=== PATIENT | male | born 1955 | race Caucasian/White ===

== ENCOUNTER 2016-09-29 19:54 | Emergency (ER) | payer BC ==
[2016-09-29 20:20] VITALS: BP 136/82; PULSE 64; TEMP 98; BMI 30.1
[2016-09-29] MEDS ORDERED: CEPHALEXIN MONOHYDRATE 500 MG CAPSULE (UD) ONE (22:37)
[2016-09-29] MEDS ORDERED: DIPHTH,PERTUSS(ACELL),TET 0.5 ML DISP.SYRIN IM ONE (22:43)
[2016-09-29] MEDS ORDERED: CEPHALEXIN MONOHYDRATE 500 MG CAPSULE (UD) PO ONE (22:43)
--- NOTE | 2016-09-29 22:57 | PDOC ---
History of Present Illness - General Chief Complaint: Laceration Stated Complaint: LACERATION Time Seen by Provider: 09/29/16 22:16 History Source: Patient Exam Limitations: No Limitations - History of Present Illness Initial Comments: 09/30/16 15:10 My Chief Complaint: left fourth finger laceration History of Present Illness: He is a 61-year-old male with no significant medical history here today after he sustained a laceration to his left fourth finger medial distal aspect cutting it on a bottle in the garbage. Patient reports no glass was broken off into his finger. Patient denies any numbness of finger. Patient has full range of motion of digit. Patient is unsure whether or not he is up-to-date will update today. 09/30/16 15:11 09/30/16 15:13 Occurred: reports: this afternoon Severity: reports: mild Pain Location: reports: upper extremity Method of Injury: Yes: other (to glass from the garbage) Modifying Factors: improves with: None Past History - Past Medical History Allergies/Adverse Reactions: Allergies Allergy/AdvReac Type Severity Reaction Status Date / Time No Known Allergies Allergy Verified 09/29/16 20:20 Home Medications: Ambulatory Orders Cephalexin Monohydrate [Keflex -] 500 mg PO Q8H #29 capsule 09/29/16 Other medical history: Pt denies - Psycho/Social/Smoking Cessation Hx Suicidal Ideation: No Smoking History: Never smoked Hx Alcohol Use: No Drug/Substance Use Hx: No Substance Use Type: None Review of Systems - Review of Systems Able to Perform ROS?: Yes Constitutional: No: Symptoms Reported HEENTM: No: Symptoms Reported Respiratory: No: Symptoms reported Cardiac (ROS): No: Symptoms Reported ABD/GI: No: Symptoms Reported : No: Symptoms Reported Musculoskeletal: No: Symptoms Reported Integumentary: Yes: Other (laceration left fourth finger distal aspect) Neurological: No: Symptoms reported *Physical Exam - Vital Signs Last Vital Signs Temp Pulse Resp BP Pulse Ox 98.0 F 64 20 136/82 98 09/29/16 20:17 09/29/16 20:17 09/29/16 20:17 09/29/16 20:17 09/29/16 20:17 - Physical Exam General Appearance: Yes: Appropriately Dressed Comments:: 09/29/16 22:45 radial pulse 4 + left Extremity: positive: Normal Capillary Refill, Normal Range of Motion (left 4th finger dip jt, pip jt, mcp jt). negative: Normal Inspection (left fourth finger ) Integumentary: positive: Normal Color, Other (laceration linear approx 2.8 cm x 0.25 cm left 4th distal finger ) Neurologic: positive: Alert, Normal Response (left 4th finger ), Respond to painful stimul (left 4th finger ). negative: Sensory Deficit (left fourth finger ) Procedures - Consent Consent obtained: From Patient - Laceration/Wound Repair Left Distal Volar Finger 4th digit Wound Length: 2.6 to 5.0 cm Wound Explored: clean Wound's Depth, Shape: linear Irrigated w/ Saline: Yes Betadine Prep: Yes Anesthesia: 1% Lidocaine Amount of Anesthetic (ccs): 5 (digital block ) Wound Repaired With: Sutures Suture Size/Type: 4:0 Number of Sutures: 3 Sterile Dressing Applied: Yes Progress: 09/29/16 22:59 wound explored left 4th finger no foreign body noted Medical Decision Making - Medical Decision Making 09/30/16 15:12 09/30/16 15:13 09/30/16 15:13 He is a 61-year-old male with no significant medical history here today after he sustained a laceration to his left fourth finger medial distal aspect cutting it on a bottle in the garbage. Patient reports no glass was broken off into his finger. Patient denies any numbness of finger. Patient has full range of motion of digit. Patient is unsure whether or not he is up-to-date will update today. Left fourth finger laceration PLAN: 3 interrupted sutures left fourth finger TDAP 0.5 ML IM keflex 500 mg po now q 8 hrs for 7 days 09/30/16 15:14 *DC/Admit/Observation/Transfer Diagnosis at time of Disposition: Laceration of finger of left hand Qualifiers: Encounter type: initial encounter Qualified Code(s): S61.219A - Laceration without foreign body of unspecified finger without damage to nail, initial encounter - Discharge Dispostion Disposition: HOME Condition at time of disposition: Stable - Prescriptions Prescriptions: Cephalexin Monohydrate [Keflex -] 500 mg PO Q8H #29 capsule - Patient Instructions Additional Instructions: Today Your tetanus, diphtheria and pertussis vaccine was updated Keep your left fourth finger dry for the rest of the night may wash tomorrow with antibacterial soap and water pat dry and apply tiny amount of bacitracin ointment twice daily cover with Band-Aid and let air out at night Return here in 10 days for suture removal or sooner if any redness around wound or discharge from wound or swelling of finger or fever take ibuprofen or acetaminophen As needed as directed by electronic system engineer for pain patient voiced understanding of discharge Instructions and all questions were answered
== END 2016-09-29 23:07 | disposition home or self-care (01) ==
LOC: JERFT 19:54
PROC: 0HQGXZZ Repair Left Hand Skin, External Approach (ICD-10-PCS; principal; 2016-09-29)
PROC: 3E0234Z Introduction of Serum, Toxoid and Vaccine into Muscle, Percutaneous Approach (ICD-10-PCS; 2016-09-29)
DX: S61.215A Laceration without foreign body of left ring finger without damage to nail, initial encounter (principal); W25.XXXA Contact with sharp glass, initial encounter; Y93.E9 Activity, other interior property and clothing maintenance; Y92.038 Other place in apartment as the place of occurrence of the external cause; Y99.8 Other external cause status
CPT/HCPCS: 90715; 99281-25